=== PATIENT | female | born 1955 | race Caucasian/White ===

== ENCOUNTER 2017-03-06 05:57 | Day surgery (SDC) | payer OTHER ==
[~2017-03-06] VITALS: Ht 160 cm; Wt 67.0 kg
[2017-03-06 07:43] VITALS: Ht 160 cm; Wt 67.0 kg
[2017-03-06] MEDS ORDERED: LOSA25TA5 PO (07:52)
[2017-03-06] MEDS ORDERED: ASPI81TA3 PO (07:52)
[2017-03-06] MEDS ORDERED: nexium PO (07:53)
--- NOTE | 2017-03-06 08:34 | OPPN ---
Date/Time of Note Date/Time of Note DATE: 03/06/17 TIME: 08:33 Operative Report Preoperative Diagnosis Positive occult blood in stool Postoperative Diagnosis Small transverse colon polyp was removed Internal hemorrhoids Operation/Procedure Performed Colonoscopy and biopsy Surgeon see signature line teachers assistant None Anesthesia: moderate sedation Estimated blood loss: none Transfusion Required none Specimen Colon polyp biopsy Grafts/Implants none Complications none GRAY GIBSON MD Mar 06, 2017 08:34
[2017-03-06] MEDS ORDERED: MIDAZOLAM 1 MG/ML 2 ML INJ ONE ×2 (08:44)
[2017-03-06] MEDS ORDERED: FENTAnyl 50 MCG/ML VIAL ONE (08:45)
[2017-03-06 08:56] VITALS: BP 110/77; PULSE 72; RESP 18
--- NOTE | 2017-03-06 14:13 | GILP ---
DATE OF PROCEDURE: NAME OF PROCEDURE: Colonoscopy and biopsy. SURGEON: Gray Delgado MD PREOPERATIVE DIAGNOSIS: Positive occult blood in stool. POSTOPERATIVE DIAGNOSES 1. Colonoscopy all the way to the cecum. 2. Small transverse colon polyp was removed. 3. Internal hemorrhoids. INDICATION FOR THE PROCEDURE: Ms. Mela Lopez is a 61-year-old female patient who was noted to have p ositive occult blood in stool. The patient was scheduled for colonoscopic examination for further e valuation. The procedure and possible complications are well explained to the patient. The patient understood and consented to the procedure. DESCRIPTION OF PROCEDURE: Under the influence of fentanyl and Versed, the colonoscope was carefully introduced in the rectum and under direct vision it was advanced all the way to the cecum. FINDINGS: The patient had a small transverse colon polyp and it was removed using biopsy forceps. She had internal hemorrhoids. She tolerated the procedure very well and there was no complication from the procedure. At the end of the procedures, she was awake with stable vital signs and she was discharged home to the care of her family. IMPRESSION: Please see postoperative diagnosis. PLAN: Next screening colonoscopy in 10 years. Dictated By: GRAY SINGH/RUKHSANA Conf#: [id number] DID#: [id number]
== END 2017-03-06 18:43 | disposition home or self-care (01) ==
LOC: GIL 05:57
PROVIDERS: ATTEND Internal Medicine Gastroenterology
DX: K92.1 Melena (principal); D12.3 Benign neoplasm of transverse colon; K64.8 Other hemorrhoids; I10 Essential (primary) hypertension
CPT/HCPCS: 45380; 88305; J2250; J3010; Z7610